=== PATIENT | female | born 1975 | race Caucasian/White ===

== ENCOUNTER → 2016-07-12 | Outpatient (CLI) | payer OTHER | LOC: M OUTALCOH 13:57 | PROVIDERS: ATTEND Psychiatry & Neurology Psychiatry | DX: F10.20 Alcohol dependence, uncomplicated (principal); F12.20 Cannabis dependence, uncomplicated ==

== ENCOUNTER 2016-08-17 14:00 | Outpatient (RCR) | payer OTHER | END 2016-08-18 | LOC: M OUTALCOH 14:00 | PROVIDERS: ATTEND Psychiatry & Neurology Psychiatry | DX: F10.20 Alcohol dependence, uncomplicated (principal); F12.20 Cannabis dependence, uncomplicated; F17.200 Nicotine dependence, unspecified, uncomplicated ==

== ENCOUNTER 2017-06-27 15:01 | Emergency (ER) | payer OTHER ==
[2017-06-27 16:07] LABS: KETONE, URINE AUTO RFX TRACE mg/dL (NEGATIVE); LEUKOCYTE ESTERASE UR AUTO RFX NEGATIVE (NEGATIVE); MUCUS, URINE RFX SMALL (NEGATIVE); NITRITE, URINE AUTO RFX NEGATIVE (NEGATIVE); RBC, URINE AUTO RFX 3 /HPF (0-3); SQUAM EPITHELIAL CELL UR AURFX 6 /HPF (0-6); WBC, URINE AUTO RFX 2 /HPF (0-3)
[2017-06-27 18:07] LABS: CONTROL LINE UCG INT CTR LINE PRESENT; URINE PREG TEST NEGATIVE (NEGATIVE)
[2017-06-27] MEDS: NS 1,000 ML IV ×2 (18:13)
[2017-06-27] MEDS: MORPHINE 4 MG/ML 1ML VIAL (J2270) IV ×2 (18:14→18:48)
[2017-06-27] MEDS: MORPHINE 4 MG/ML 1ML VIAL IV ×2 (18:14→18:48)
[2017-06-27 18:29] LABS: BASO # 0.1 10^3/uL (0.0-0.2); EOS # 0.1 10^3/uL (0.0-0.50); EOS % 1.8 % (0.0-3.0); HEMATOCRIT 39.5 % (36.0-47.0); HEMOGLOBIN 13.5 g/dl (12.0-16.0); IMMATURE GRANULOCYTE % 0.1 % (0-3.0); LYMPH # 3.6 10^3/uL (1.5-4.5); LYMPH % 48.9 % (24.0-44.0); MEAN CORPUSCULAR HEMOGLOBIN 30.8 pg (27.0-33.0); MEAN CORPUSCULAR HGB CONC 34.2 g/dl (32.0-36.5); MONO # 0.6 10^3/uL (0.0-0.8); MONO % 7.5 % (0.0-5.0); NEUTROPHILS % 40.7 % (36.0-66.0); PLATELET COUNT, AUTOMATED 268 10^3/uL (150-450); RED BLOOD COUNT 4.39 10^6/uL (4.00-5.40); RED CELL DISTRIBUTION WIDTH 12.2 % (11.5-14.5); WHITE BLOOD COUNT 7.4 10^3/uL (4.0-10.0)
[2017-06-27 18:55] LABS: ALBUMIN 3.9 GM/DL (3.2-5.2); ALBUMIN/GLOBULIN RATIO 1.05 (1.00-1.93); ALKALINE PHOSPHATASE 62 U/L (45-117); ALT/SGPT 30 U/L (12-78); ANION GAP 5 MEQ/L (8-16); AST/SGOT 15 U/L (7-37); BILIRUBIN,DIRECT < 0.1 MG/DL (0.0-0.2); BILIRUBIN,TOTAL 0.2 MG/DL (0.2-1.0); BLOOD UREA NITROGEN 13 MG/DL (7-18); CALCIUM LEVEL 8.9 MG/DL (8.5-10.1); CARBON DIOXIDE LEVEL 30 MEQ/L (21-32); CHLORIDE LEVEL 104 MEQ/L (98-107); CREATININE FOR GFR 0.82 MG/DL (0.55-1.30); GLOMERULAR FILTRATION RATE > 60.0 (>58); GLUCOSE, FASTING 83 MG/DL (70-100); POTASSIUM SERUM 4.2 MEQ/L (3.5-5.1); SODIUM LEVEL 139 MEQ/L (136-145); TOTAL PROTEIN 7.6 GM/DL (6.4-8.2)
[2017-06-27] MEDS ORDERED: NORCO 5/325MG TABLET (BULK FOR ED) PO ×2 (21:00)
== END 2017-06-27 20:57 | disposition home or self-care (01) ==
LOC: M ED 15:01
DX: S29.012A Strain of muscle and tendon of back wall of thorax, initial encounter (principal); X58.XXXA Exposure to other specified factors, initial encounter; Y92.89 Other specified places as the place of occurrence of the external cause; N20.0 Calculus of kidney; E11.9 Type 2 diabetes mellitus without complications; F41.9 Anxiety disorder, unspecified; F17.210 Nicotine dependence, cigarettes, uncomplicated; Z79.899 Other long term (current) drug therapy; Z87.442 Personal history of urinary calculi; Z98.890 Other specified postprocedural states; Z87.39 Personal history of other diseases of the musculoskeletal system and connective tissue
CPT/HCPCS: 74176; J2270

== ENCOUNTER → 2017-08-03 | Outpatient (REF) | payer OTHER ==
[2017-08-08 00:06] LABS: HPV HYBRID CAPTURE II Negative (Negative)
== END ==
LOC: M LAB REF 13:12
DX: Z12.4 Encounter for screening for malignant neoplasm of cervix (principal); R87.610 Atypical squamous cells of undetermined significance on cytologic smear of cervix (ASC-US)
CPT/HCPCS: 88142

== ENCOUNTER → 2017-08-14 | Outpatient (REF) | payer OTHER ==
[2017-08-14 14:14] LABS: RHEUMATOID FACTOR QUANT < 10.0 IU/ML (<15.0)
[2017-08-14 14:14] LABS: C REACTIVE PROTEIN QUANTITATIV < 0.30 MG/DL (0.00-0.30)
[2017-08-14 14:51] LABS: ERYTHROCYTE SEDIMENTATION RATE 11 mm/hr (0-20)
[2017-08-15 14:14] LABS: ANTINUCLEAR ANTIBODIES DIRECT Negative (Negative)
== END ==
LOC: M LAB REF 13:34
DX: M25.50 Pain in unspecified joint (principal)

== ENCOUNTER → 2017-12-19 | Outpatient (REF) | payer OTHER | LOC: M LAB REF 13:32 | DX: R87.610 Atypical squamous cells of undetermined significance on cytologic smear of cervix (ASC-US) (principal) | CPT/HCPCS: 88304 ==

== ENCOUNTER → 2018-06-12 | Outpatient (CLI) | payer MEDICAID ==
[~2018-06-12] MED LIST: CYCL10TA PO; IBUP-1114 PO; NORCOTAB PO; WELLTAB38 PO
== END ==
LOC: M OUTALCOH 08:34
PROVIDERS: ATTEND Psychiatry & Neurology Psychiatry
DX: F10.20 Alcohol dependence, uncomplicated (principal)

== ENCOUNTER 2018-06-27 14:00 | Outpatient (RCR) | payer MEDICAID | END 2018-07-18 | LOC: M OUTALCOH 14:00 | PROVIDERS: ATTEND Psychiatry & Neurology Psychiatry | DX: F10.20 Alcohol dependence, uncomplicated (principal); F14.20 Cocaine dependence, uncomplicated; F17.200 Nicotine dependence, unspecified, uncomplicated ==

== ENCOUNTER → 2018-07-29 | Outpatient (CLI) | payer MEDICAID ==
--- NOTE | 2018-07-29 14:39 | REP ---
Chest two views HISTORY: Dyspnea Comparison: 06/19/2009 The lungs are clear. The heart is normal in size. The pulmonary vasculature is normal in appearance. The bony structure is intact. IMPRESSION: No acute disease. Electronically Signed by Ancelmo Cadena MD 07/29/2018 02:31 P
== END ==
LOC: M WUC 13:53
PROVIDERS: ATTEND Nurse Practitioner Adult Health
DX: R06.02 Shortness of breath (principal)

== ENCOUNTER 2018-09-27 21:22 | Emergency (ER) | payer MEDICAID, OTHER ==
[~2018-09-27] VITALS: Ht 170.2 cm; Wt 80.9 kg
[~2018-09-27 21:22] MED LIST changes: +HYDR-3715 PO; -NORCOTAB PO
[2018-09-27] MEDS ORDERED: KETOROLAC 60 MG/2 ML VIAL (J1885) IM ONE (22:15)
[2018-09-27] MEDS ORDERED: methylPREDNISolone INJ 125 MG/2 ML VIAL (J2930) IM ONE (22:15)
[2018-09-27] MEDS ORDERED: IBUP80TA PO (23:19)
[2018-09-27 23:20] VITALS: BP 129/78
--- NOTE | 2018-09-28 08:27 | REP ---
Lumbar spine radiographs: Five views. History: Back pain. Findings: Lumbar vertebral body heights are preserved. Alignment is normal. There is mild disc space narrowing and early spur formation at the L5-S1 disc space. Pedicles and posterior elements are intact. Psoas margins are symmetric. Minimal degenerative disc changes are seen at the other lumbar levels as well. Impression: Mild degenerative disc changes. No acute bony abnormality. Electronically Signed by Kiko Ignacio MD 09/28/2018 08:18 A
== END 2018-09-27 23:26 | disposition home or self-care (01) ==
LOC: M ED 21:22
DX: S39.012A Strain of muscle, fascia and tendon of lower back, initial encounter (principal); Y92.9 Unspecified place or not applicable; Y93.9 Activity, unspecified; Y99.9 Unspecified external cause status; M51.36 Other intervertebral disc degeneration, lumbar region; M25.78 Osteophyte, vertebrae; E11.9 Type 2 diabetes mellitus without complications; F17.210 Nicotine dependence, cigarettes, uncomplicated; Z87.442 Personal history of urinary calculi; Z98.51 Tubal ligation status; Z79.891 Long term (current) use of opiate analgesic; Z79.899 Other long term (current) drug therapy
CPT/HCPCS: 72110; 81025; 96372; 99284; J1885; J2930

== ENCOUNTER 2020-02-15 21:31 | Day surgery (SDC) | payer OTHER ==
[~2020-02-15] VITALS: Ht 170.2 cm; Wt 77.0 kg
[~2020-02-15 21:31] MED LIST changes: +CYCL-707 PO; -CYCL10TA PO; +IBUP80TA PO
[2020-02-15] MEDS ORDERED: OMEP-218 PO (21:49)
[2020-02-15] MEDS ORDERED: GABA-1171 PO (21:49)
[2020-02-15] MEDS ORDERED: LORazepam 0.5 MG TAB PO STA (21:52)
[2020-02-15] MEDS ORDERED: GI COCKTAIL 50ML BTL(HYOSCYAMINE/MAALOX/LIDOCAINE VISCOUS)(1:3:1) PO ONE (22:00)
[2020-02-15] MEDS ORDERED: NITROGLYCERIN 0.4 MG SUBL TABLET SL STA (22:36)
[2020-02-15] MEDS ORDERED: GLUCAGON INJ 1MG VIAL IV STA ×2 (22:36→23:03)
[2020-02-15 22:51] VITALS: BP 138/81
[2020-02-16] MEDS ORDERED: fentaNYL 100 MCG/2 ML INJECTION (J3010) As Ordered ONE (00:48)
[2020-02-16] MEDS ORDERED: propofoL 200 MG/20 ML VIAL As Ordered ONE (00:48)
[2020-02-16] MEDS ORDERED: MIDAZOLAM INJ 2MG/2ML VIAL (J2250 PER 1MG) As Ordered ONE (00:48)
[2020-02-16] MEDS ORDERED: ROCURONIUM BROMIDE 50 MG/5 ML VIAL As Ordered ONE (00:48)
[2020-02-16] MEDS ORDERED: LIDOCAINE 2% 100MG/5ML SDV (FOR ANES.) As Ordered ONE (00:48)
[2020-02-16] MEDS ORDERED: SUGAMMADEX SODIUM 500 MG/5 ML VIAL (BRIDION) As Ordered ONE (01:18)
[2020-02-16] MEDS ORDERED: SUCCINYLCHOLINE 100 MG/5 ML SYRINGE (J0330) As Ordered ONE (01:18)
[2020-02-16] MEDS ORDERED: ONDANSETRON 4MG/2ML VIAL As Ordered ONE ×2 (01:19→01:50)
[2020-02-16] MEDS ORDERED: dexameTHASONE 4 MG/ML 1ML VIAL (J1100 PER 1MG) As Ordered ONE (01:19)
--- NOTE | 2020-02-16 01:43 | ROOR ---
Patient Name: Senait Escobar Procedure Date: 02/17/2020 1:04 AM Date of : 1975 Age: 44 Gender: Female Note Status: Finalized Procedure: Upper GI endoscopy Indications: Dysphagia, Follow-up of gastro-esophageal reflux disease, Foreign body in the esophagus Providers: Trevor CHONG MD Referring MD: Family Practice/Adult section [facility], 3. Emergency Dept 3. Emergency Dept Requesting Provider: Medicines: Monitored Anesthesia Care Complications: No immediate complications. Procedure: Pre-Anesthesia Assessment: - The heart rate, respiratory rate, oxygen saturations, blood pressure, adequacy of pulmonary ventilation, and response to care were monitored throughout the procedure. The Endoscope was introduced through the mouth, and advanced to the second part of duodenum. The upper GI endoscopy was accomplished without difficulty. The patient tolerated the procedure well. Findings: Food was found in the lower third of the esophagus. Removal of food was accomplished. LA Grade B (one or more mucosal breaks greater than 5 mm, not extending between the tops of two mucosal folds) esophagitis was found at the gastroesophageal junction. Biopsies were taken with a cold forceps for histology. The exam of the esophagus was otherwise normal. Biopsies with a cold forceps in the mid esophagus was performed for evaluation of eosinophilic esophagitis. The entire examined stomach was normal. The examined duodenum was normal. Impression: - Food in the lower third of the esophagus. Removal was successful. - Moderate reflux esophagitis. Biopsied. - Normal stomach. - Normal examined duodenum. (- Edema and inflammation is seen in the distal esophagus. No significant stricture is seen.) Recommendation: - Use Prilosec (omeprazole) 40 mg PO daily. - Follow an antireflux regimen. - Observe patient's clinical course. - Return to my office PRN. - Telephone endoscopist for pathology results in 2 weeks. - Written discharge instructions were provided to the patient. - Patient has a contact number available for emergencies. The signs and symptoms of potential delayed complications were discussed with the patient. Return to normal activities tomorrow. Written discharge instructions were provided to the patient. - Discharge patient to home. Trevor Chong MD Trevor CHONG MD 02/16/2020 1:42:23 AM Electronically signed by Trevor CHONG MD Number of Addenda: 0 Note Initiated On: 02/16/2020 1:04 AM Estimated Blood Loss: Estimated blood loss: none.
[2020-02-16] MEDS ORDERED: LR 1,000 ML IV SCH (02:00)
[2020-02-16] MEDS ORDERED: ONDANSETRON 4MG/2ML VIAL IV PRN (02:00)
[2020-02-16] MEDS ORDERED: fentaNYL 100 MCG/2 ML INJECTION (J3010) IV PRN (02:00)
[2020-02-16 02:43] VITALS: BP 166/90
== END 2020-02-16 03:10 | disposition home or self-care (01) ==
LOC: M ED 21:31 → M SDC 21:32
PROVIDERS: ATTEND Internal Medicine Gastroenterology
DX: T18.128A Food in esophagus causing other injury, initial encounter (principal); K20.9 Esophagitis, unspecified; Y92.89 Other specified places as the place of occurrence of the external cause
CPT/HCPCS: 43239; 43247; 88305; 96374; 96376; 99284; J0330; J1100; J1610; J2250; J2405; J3010; U0002

== ENCOUNTER → 2020-11-07 | Outpatient (REF) | payer OTHER ==
[~2020-11-07] MED LIST changes: +GABA-1171 PO; +OMEP-218 PO
[2020-11-08 13:32] LABS: CHLAMYDIA DNA AMPLIFICATION NEGATIVE (NEGATIVE); GC DNA AMPLIFICATION NEGATIVE (NEGATIVE)
== END ==
LOC: M LAB REF 09:32
PROVIDERS: ATTEND Nurse Practitioner Family
DX: R30.0 Dysuria (principal); Z20.2 Contact with and (suspected) exposure to infections with a predominantly sexual mode of transmission

== ENCOUNTER → 2021-02-27 | Outpatient (REF) | payer OTHER ==
[2021-02-27 20:00] LABS: APPEARANCE, URINE HAZY (CLEAR); BACTERIA, URINE AUTO NEGATIVE (NEGATIVE); BILIRUBIN, URINE AUTO NEGATIVE (NEGATIVE); BLOOD, URINE BLOOD 1+ (NEGATIVE); COLOR, URINE YELLOW (YELLOW); GLUCOSE, URINE (UA) AUTO NEGATIVE (NEGATIVE); KETONE, URINE AUTO NEGATIVE (NEGATIVE); LEUKOCYTE ESTERASE, URINE AUTO NEGATIVE (NEGATIVE); MUCUS, URINE SMALL (NEGATIVE); NITRITE, URINE AUTO NEGATIVE (NEGATIVE); PROTEIN, URINE AUTO NEGATIVE (NEGATIVE); RBC, URINE AUTO 3 /HPF (0-3); SPECIFIC GRAVITY URINE AUTO 1.017 (1.002-1.035); SQUAMOUS EPITHELIAL CELL UR AU 2 /HPF (0-6); UROBILINOGEN, URINE AUTO 0.2 mg/dL (0.0-2.0); WBC, URINE AUTO 1 /HPF (0-3)
[2021-02-27 22:08] LABS: GC DNA AMPLIFICATION NEGATIVE (NEGATIVE)
== END ==
LOC: M LAB REF 19:36
PROVIDERS: ATTEND Physician Assistant
DX: N39.0 Urinary tract infection, site not specified (principal)

== ENCOUNTER 2021-03-01 10:09 | Emergency (ER) | payer OTHER ==
[~2021-03-01] VITALS: Ht 170.2 cm; Wt 81.4 kg
--- NOTE | 2021-03-01 10:40 | REP ---
INDICATION: CHEST PAIN COMPARISON: 07/29/2018 TECHNIQUE: Portable AP view of the chest FINDINGS: The mediastinum and cardiac silhouette are stable and within normal limits for portable technique. The lung river are clear without acute consolidation, effusion, or pneumothorax. Skeletal structures are intact. IMPRESSION: No acute cardiopulmonary process appreciated. <Electronically signed by Abel Kinney > 03/01/21 [id number]
[2021-03-01 11:48] LABS: BASO # 0.1 10^3/uL (0.0-0.2); EOS # 0.2 10^3/uL (0.0-0.5); HEMATOCRIT 36.5 % (36.0-47.0); HEMOGLOBIN 12.3 g/dl (12.0-15.5); LYMPH # 2.4 10^3/uL (1.5-5.0); LYMPH % 30.2 % (24.0-44.0); MEAN CORPUSCULAR HEMOGLOBIN 30.8 pg (27.0-33.0); MEAN CORPUSCULAR HGB CONC 33.7 g/dl (32.0-36.5); MEAN CORPUSCULAR VOLUME 91.5 fl (80.0-96.0); MONO # 0.6 10^3/uL (0.0-0.8); NEUTROPHILS # 4.6 10^3/uL (1.5-8.5); NEUTROPHILS % 59.5 % (36.0-66.0); PLATELET COUNT, AUTOMATED 231 10^3/uL (150-450); RED BLOOD COUNT 3.99 10^6/uL (4.00-5.40); WHITE BLOOD COUNT 7.8 10^3/uL (4.0-10.0)
[2021-03-01] MEDS ORDERED: GI COCKTAIL 50ML BTL(HYOSCYAMINE/MAALOX/LIDOCAINE VISCOUS)(1:3:1) PO ONE (11:50)
[2021-03-01] MEDS ORDERED: ONDANSETRON 4MG/2ML VIAL IV ONE (11:50)
[2021-03-01 11:59] LABS: INR 0.98; PROTHROMBIN TIME 13.4 SECONDS (12.7-14.5)
[2021-03-01 12:27] LABS: ALT/SGPT 27 U/L (12-78); BILIRUBIN,DIRECT < 0.1 MG/DL (0.0-0.2); BILIRUBIN,TOTAL 0.3 MG/DL (0.2-1.0); BLOOD UREA NITROGEN 22 MG/DL (7-18); CALCIUM LEVEL 8.5 MG/DL (8.5-10.1); CARBON DIOXIDE LEVEL 26 MEQ/L (21-32); CHLORIDE LEVEL 109 MEQ/L (98-107); CK-MB VALUE MASS 1.1 NG/ML (<3.6); CPK CREATINE PHOSPHOKINASE 74 U/L (26-192); CREATININE FOR GFR 0.78 MG/DL (0.55-1.30); FREE T4 1.17 NG/DL (0.76-1.46); GLOMERULAR FILTRATION RATE > 60.0 (>58); GLUCOSE, FASTING 116 MG/DL (70-100); LIPASE 127 U/L (73-393); MB/CK RELATIVE INDEX 1.49 (< OR =4); NT-PRO BNP 53 PG/ML (<125); POTASSIUM SERUM 4.2 MEQ/L (3.5-5.1); SODIUM LEVEL 139 MEQ/L (136-145); THYROID STIMULATING HORMONE 0.291 uIU/ML (0.358-3.740); TOTAL PROTEIN 6.6 GM/DL (6.4-8.2); TROPONIN I < 0.02 NG/ML (< 0.10)
[2021-03-01] MEDS ORDERED: NITROGLYCERIN 0.4 MG SUBL TABLET SL STA (12:32)
[2021-03-01] MEDS ORDERED: ASPIRIN 81 MG CHEW TABLET PO ONE (12:35)
[2021-03-01] MEDS ORDERED: ISOVUE-370 76% 100ML VIAL As Ordered ONE (12:42)
[2021-03-01] MEDS ORDERED: LORazepam 2 MG/ML VIAL IV STA (13:02)
[2021-03-01] MEDS ORDERED: PANTOPRAZOLE 40MG VIAL (C9113 PER 1) IV ONE (13:05)
--- NOTE | 2021-03-01 13:11 | REP ---
INDICATION: chest pain sob. COMPARISON: Radiograph today. TECHNIQUE: CT angiogram chest performed following the intravenous administration of 100 cc of Isovue 370. Sagittal and coronal reconstruction images are performed. FINDINGS: Lungs: Clear, no infiltrate or nodule. Mediastinum: No adenopathy. Pulmonary arteries: No evidence of pulmonary embolism. Marti: No adenopathy. Axilla: No adenopathy. Pleura: No effusion. Heart: Not enlarged. Thoracic aorta: No aneurysm or dissection. Upper abdominal structures: Unremarkable. Visualized osseous structures: Unremarkable. IMPRESSION: No CT evidence of pulmonary embolism. No infiltrate seen. <Electronically signed by Han Hillman > 03/01/21 [id number]
[2021-03-01 17:55] LABS: CK-MB VALUE MASS 1.1 NG/ML (<3.6); CPK CREATINE PHOSPHOKINASE 73 U/L (26-192); MB/CK RELATIVE INDEX 1.51 (< OR =4); TROPONIN I < 0.02 NG/ML (< 0.10)
[2021-03-01 18:30] VITALS: BP 133/66
--- NOTE | 2021-03-01 21:47 | ECGEPIP ---
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
--- NOTE | 2021-03-01 22:06 | ECGEPIP ---
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
== END 2021-03-01 18:48 | disposition home or self-care (01) ==
LOC: M ED 10:09
DX: R07.9 Chest pain, unspecified (principal); R06.02 Shortness of breath; J43.9 Emphysema, unspecified; F33.9 Major depressive disorder, recurrent, unspecified; F43.10 Post-traumatic stress disorder, unspecified; M51.9 Unspecified thoracic, thoracolumbar and lumbosacral intervertebral disc disorder; Z79.899 Other long term (current) drug therapy; F17.210 Nicotine dependence, cigarettes, uncomplicated
CPT/HCPCS: 71045; 71275; 80048; 80076; 82550; 82553; 83690; 83880; 84439; 84443; 85025; 85610; 85730; 87040; 93005; 93041; 94760; 96374; 96375; 99285; C9113; J2060; J2405; Q9967

== ENCOUNTER → 2022-03-14 | Outpatient (CLI) | payer MEDICAID ==
[~2022-03-14] MED LIST changes: +OMEP-173 PO; -OMEP-218 PO
== END ==
LOC: M OUTALCOH 07:56
PROVIDERS: ATTEND Psychiatry & Neurology Psychiatry
DX: Z02.9 Encounter for administrative examinations, unspecified (principal)

== ENCOUNTER 2022-03-17 11:18 | Outpatient (RCR) | payer MEDICAID | END 2022-03-20 | LOC: M OUTALCOH 11:18 | PROVIDERS: ATTEND Psychiatry & Neurology Psychiatry | DX: F10.20 Alcohol dependence, uncomplicated (principal); F12.20 Cannabis dependence, uncomplicated; F15.20 Other stimulant dependence, uncomplicated; F17.200 Nicotine dependence, unspecified, uncomplicated ==

== ENCOUNTER → 2023-01-29 | Outpatient (REF) | payer MEDICAID ==
[2023-01-29 19:20] LABS: CREATININE, URINE 148.1 MG/DL; MAU/CREAT RATIO 10.1 MCG/MG (0.0-30.0)
[2023-01-31 11:08] LABS: CREATININE, URINE 141.9 mg/dL (20.0-300.0)
== END ==
LOC: M LAB REF 17:24
PROVIDERS: ATTEND Nurse Practitioner Family
DX: Z79.899 Other long term (current) drug therapy (principal); E11.9 Type 2 diabetes mellitus without complications

== ENCOUNTER → 2023-06-26 | Outpatient (CLI) | payer OTHER | LOC: M WUC 09:20 | PROVIDERS: ATTEND Physician Assistant | DX: M54.2 Cervicalgia (principal) ==

== ENCOUNTER → 2023-06-26 | Outpatient (CLI) | payer OTHER ==
[2023-06-26 10:53] LABS: BASO # 0.1 10^3/uL (0.0-0.2); BASO % 0.8 % (0.0-1.0); EOS # 0.1 10^3/uL (0.0-0.5); EOS % 1.7 % (0.0-3.0); HEMATOCRIT 41.1 % (36.0-47.0); HEMOGLOBIN 13.7 g/dl (12.0-15.5); LYMPH # 2.2 10^3/uL (1.5-5.0); MEAN CORPUSCULAR HEMOGLOBIN 29.8 pg (27.0-33.0); MEAN CORPUSCULAR HGB CONC 33.3 g/dl (32.0-36.5); MEAN CORPUSCULAR VOLUME 89.5 fl (80.0-96.0); MONO # 0.5 10^3/uL (0.0-0.8); MONO % 6.9 % (2.0-8.0); NEUTROPHILS # 4.2 10^3/uL (1.5-8.5); NEUTROPHILS % 59.5 % (36.0-66.0); PLATELET COUNT, AUTOMATED 224 10^3/uL (150-450); RED BLOOD COUNT 4.59 10^6/uL (4.00-5.40); WHITE BLOOD COUNT 7.1 10^3/uL (4.0-10.0)
[2023-06-26 11:03] LABS: ERYTHROCYTE SEDIMENTATION RATE 41 mm/hr (0-20)
[2023-06-26 11:29] LABS: FOLATE > 24.0 NG/ML (>5.4); THYROID STIMULATING HORMONE 0.974 uIU/ML (0.55-4.78)
[2023-06-26 11:30] LABS: VITAMIN B12 LEVEL 530 PG/ML (211-911)
[2023-06-26 11:39] LABS: C REACTIVE PROTEIN QUANTITATIV < 0.40 MG/DL (<1.0)
[2023-06-26 11:41] LABS: ALBUMIN 3.7 G/DL (3.2-5.2); ALKALINE PHOSPHATASE 54 U/L (46-116); ALT/SGPT 22 U/L (7.0-40); AST/SGOT 18 U/L (<34); BILIRUBIN,TOTAL 0.4 MG/DL (0.3-1.2); BLOOD UREA NITROGEN 11 MG/DL (9-23); CARBON DIOXIDE LEVEL 27 MMOL/L (20-31); CHLORIDE LEVEL 105 MMOL/L (98-107); CHOLESTEROL LEVEL 220 MG/DL (<200); CHOLESTEROL RISK RATIO 4.61 (<5); CREATININE FOR GFR 0.73 MG/DL (0.55-1.30); GLOMERULAR FILTRATION RATE > 60.0 (>58); GLUCOSE, FASTING 85 MG/DL (60-100); HDL CHOLESTEROL 47.7 MG/DL (>40); HIV 1&2 SCREEN NEGATIVE (NEGATIVE); LDL CHOLESTEROL 137.3 MG/DL (<100); NON-HDL-C 172.3 MG/DL; POTASSIUM SERUM 4.4 MMOL/L (3.5-5.1); SODIUM LEVEL 138 MMOL/L (136-145); TOTAL PROTEIN 7.2 G/DL (5.7-8.2); TRIGLYCERIDES LEVEL 175 MG/DL (<150)
[2023-06-26 11:49] LABS: HEPATITIS C VIRUS ABY INDEX 0.02 INDEX (<0.8)
== END ==
LOC: M LAB 09:46
PROVIDERS: ATTEND Physician Assistant
DX: Z11.4 Encounter for screening for human immunodeficiency virus [HIV] (principal)

== ENCOUNTER 2023-11-10 09:58 | Emergency (ER) | payer OTHER ==
[~2023-11-10] VITALS: Ht 170.2 cm; Wt 88.1 kg
[2023-11-10 09:59] VITALS: BP 135/86; O2SAT 99
[2023-11-10] MEDS ORDERED: ATOR1TAB19 (10:10)
[2023-11-10] MEDS ORDERED: HYDR50TA70 (10:10)
[2023-11-10] MEDS ORDERED: HYDR12CA (10:50)
[2023-11-10 11:03] LABS: BASO # 0.1 10^3/uL (0.0-0.2); BASO % 1.3 % (0.0-1.0); EOS # 0.2 10^3/uL (0.0-0.5); EOS % 2.4 % (0.0-3.0); HEMATOCRIT 42.2 % (36.0-47.0); HEMOGLOBIN 14.1 g/dl (12.0-15.5); LYMPH % 39.1 % (24.0-44.0); MEAN CORPUSCULAR HEMOGLOBIN 30.4 pg (27.0-33.0); MEAN CORPUSCULAR HGB CONC 33.4 g/dl (32.0-36.5); MEAN CORPUSCULAR VOLUME 90.9 fl (80.0-96.0); MONO # 0.6 10^3/uL (0.0-0.8); MONO % 7.6 % (2.0-8.0); NEUTROPHILS # 3.8 10^3/uL (1.5-8.5); NEUTROPHILS % 49.5 % (36.0-66.0); PLATELET COUNT, AUTOMATED 270 10^3/uL (150-450); RED BLOOD COUNT 4.64 10^6/uL (4.00-5.40); WHITE BLOOD COUNT 7.6 10^3/uL (4.0-10.0)
[2023-11-10 11:12] LABS: BLOOD UREA NITROGEN 12 MG/DL (9-23); CALCIUM LEVEL 9.5 MG/DL (8.5-10.1); CARBON DIOXIDE LEVEL 29 MMOL/L (20-31); CHLORIDE LEVEL 105 MMOL/L (98-107); CK-MB VALUE MASS < 1.0 NG/ML (<3.6); CREATININE FOR GFR 0.62 MG/DL (0.55-1.30); GLOMERULAR FILTRATION RATE > 60.0 (>58); GLUCOSE, FASTING 86 MG/DL (60-100); POTASSIUM SERUM 4.3 MMOL/L (3.5-5.1); SODIUM LEVEL 137 MMOL/L (136-145)
[2023-11-10 11:13] LABS: CPK CREATINE PHOSPHOKINASE 109 U/L (34-145); MB/CK RELATIVE INDEX 0.91 (< OR =4)
[2023-11-10] MEDS ORDERED: ISOVUE-370 76% 100ML VIAL As Ordered ONE (11:20)
[2023-11-10 12:28] LABS: CK-MB VALUE MASS < 1.0 NG/ML (<3.6)
[2023-11-10 12:30] LABS: CPK CREATINE PHOSPHOKINASE 86 U/L (34-145); MB/CK RELATIVE INDEX 1.16 (< OR =4)
[2023-11-10 13:50] VITALS: TEMP 97.4
== END 2023-11-10 13:51 | disposition home or self-care (01) ==
LOC: M ED 09:58
DX: R07.89 Other chest pain (principal); G56.92 Unspecified mononeuropathy of left upper limb; J44.9 Chronic obstructive pulmonary disease, unspecified; F41.9 Anxiety disorder, unspecified; F32.A Depression, unspecified; F17.210 Nicotine dependence, cigarettes, uncomplicated; Z79.899 Other long term (current) drug therapy
CPT/HCPCS: 36415; 71045; 71275; 80048; 82550; 82553; 84484; 85025; 93005; 93041; 94760; 99284; Q9967

== ENCOUNTER → 2024-01-09 | Outpatient (REF) | payer OTHER ==
[~2024-01-09] MED LIST changes: +ATOR1TAB19; +HYDR12CA; +HYDR50TA70
[2024-01-09 17:47] LABS: ALBUMIN 3.9 G/DL (3.2-5.2); BILIRUBIN,DIRECT 0.1 MG/DL (<0.4); BILIRUBIN,TOTAL 0.4 MG/DL (0.3-1.2); CHOLESTEROL RISK RATIO 5.73 (<5); LDL CHOLESTEROL 136.8 MG/DL (<100); TOTAL PROTEIN 7.6 G/DL (5.7-8.2)
== END ==
LOC: M LAB REF 16:18
PROVIDERS: ATTEND Physician Assistant
DX: E78.5 Hyperlipidemia, unspecified (principal)

== ENCOUNTER → 2024-05-07 | Outpatient (REF) | payer OTHER | LOC: M LAB REF 16:20 | PROVIDERS: ATTEND Physician Assistant | DX: B34.9 Viral infection, unspecified (principal) ==

== ENCOUNTER 2024-05-09 08:11 | Emergency (ER) | payer OTHER ==
[~2024-05-09] VITALS: Ht 170.2 cm; Wt 88.6 kg
[2024-05-09] MEDS ORDERED: ALBU8.5H (08:31)
[2024-05-09] MEDS ORDERED: ISOVUE-370 76% 100ML VIAL As Ordered ONE (08:55)
[2024-05-09 09:06] LABS: HEMATOCRIT 38.2 % (36.0-47.0); MEAN CORPUSCULAR HEMOGLOBIN 29.9 pg (27.0-33.0); MEAN CORPUSCULAR VOLUME 87.8 fl (80.0-96.0); PLATELET COUNT, AUTOMATED 183 10^3/uL (150-450); RED BLOOD COUNT 4.35 10^6/uL (4.00-5.40); WHITE BLOOD COUNT 5.2 10^3/uL (4.0-10.0)
[2024-05-09 09:16] LABS: CK-MB VALUE MASS < 1.0 NG/ML (<3.6); LIPASE 31 U/L (12-53)
[2024-05-09 09:18] LABS: CPK CREATINE PHOSPHOKINASE 77 U/L (34-145); MB/CK RELATIVE INDEX 1.29 (< OR =4)
[2024-05-09 09:19] LABS: ALBUMIN 3.2 G/DL (3.2-5.2); ALKALINE PHOSPHATASE 97 U/L (35-104); ALT/SGPT 73 U/L (7.0-40); AST/SGOT 38 U/L (<34); BILIRUBIN,DIRECT < 0.1 MG/DL (<0.4); BILIRUBIN,TOTAL 0.2 MG/DL (0.3-1.2); BLOOD UREA NITROGEN 11 MG/DL (9-23); CALCIUM LEVEL 8.9 MG/DL (8.5-10.1); CARBON DIOXIDE LEVEL 28 MMOL/L (20-31); CHLORIDE LEVEL 107 MMOL/L (98-107); CREATININE FOR GFR 0.59 MG/DL (0.55-1.30); GLOMERULAR FILTRATION RATE > 60.0 (>51); GLUCOSE, FASTING 102 MG/DL (60-100); POTASSIUM SERUM 3.9 MMOL/L (3.5-5.1); SODIUM LEVEL 141 MMOL/L (136-145); TOTAL PROTEIN 6.9 G/DL (5.7-8.2)
[2024-05-09 09:20] LABS: THYROID STIMULATING HORMONE 1.755 uIU/ML (0.55-4.78)
[2024-05-09 09:21] LABS: FREE T4 1.05 NG/DL (0.89-1.76)
[2024-05-09 09:36] LABS: ANISOCYTOSIS 1+; ATYPICAL LYMPH 9 % (0-5); BASOPHILS 1 % (0-1); LYMPHOCYTES 39 % (16-44); MONOCYTES 9 % (0-5); NEUTROPHILS 42 % (28-66); PLATELET ESTIMATE NORMAL (NORMAL); POIKILOCYTOSIS 1+
[2024-05-09 10:16] LABS: CK-MB VALUE MASS < 1.0 NG/ML (<3.6)
[2024-05-09 10:18] LABS: CPK CREATINE PHOSPHOKINASE 74 U/L (34-145); MB/CK RELATIVE INDEX 1.35 (< OR =4)
[2024-05-09] MEDS ORDERED: DOXY-441 PO (11:15)
[2024-05-09] MEDS ORDERED: PRED20TA PO (11:15)
[2024-05-09 11:16] VITALS: BP 131/84
[2024-05-09] MEDS: DOXYCYCLINE HYCLATE 100MG TABLET PO ONE (11:30)
[2024-05-09] MEDS: ACETAMINOPHEN 325 MG TAB PO ONE (11:30)
[2024-05-09] MEDS: methylPREDNISolone 125MG 2ML VIAL IV ONE (11:30)
[2024-05-09 11:31] VITALS: TEMP 97.8; O2SAT 98
== END 2024-05-09 11:42 | disposition home or self-care (01) ==
LOC: M ED 08:11 → EDBD 08:11 → M ED 11:42
DX: R91.1 Solitary pulmonary nodule (principal); J20.9 Acute bronchitis, unspecified; R07.9 Chest pain, unspecified; E04.1 Nontoxic single thyroid nodule; E11.9 Type 2 diabetes mellitus without complications; F17.210 Nicotine dependence, cigarettes, uncomplicated; F10.10 Alcohol abuse, uncomplicated; Z79.51 Long term (current) use of inhaled steroids; Z79.52 Long term (current) use of systemic steroids; Z79.899 Other long term (current) drug therapy
CPT/HCPCS: 70450; 71045; 71275; 80047; 80048; 80076; 82550; 82553; 83690; 83880; 84439; 84443; 84484; 85025; 87040; 87486; 87581; 87633; 87798; 93005; 93041; 94760; 96374; 99285; J2919; Q9967

== ENCOUNTER → 2024-05-26 | Outpatient (REF) | payer OTHER ==
[~2024-05-26] MED LIST changes: +ALBU8.5H; +DOXY-441 PO; +PRED20TA PO
[2024-05-26 19:00] LABS: CHOLESTEROL RISK RATIO 4.24 (<5); HDL CHOLESTEROL 45.2 MG/DL (>40); LDL CHOLESTEROL 126.4 MG/DL (<100); NON-HDL-C 146.8 MG/DL
[2024-05-26 19:08] LABS: FOLATE 21.47 NG/ML (>5.4)
== END ==
LOC: M LAB REF 16:18
PROVIDERS: ATTEND Physician Assistant
DX: G44.52 New daily persistent headache (NDPH) (principal); E78.5 Hyperlipidemia, unspecified

== ENCOUNTER → 2024-06-18 | Outpatient (CLI) | payer OTHER | LOC: M RAD 11:59 | PROVIDERS: ATTEND Physician Assistant | DX: E04.1 Nontoxic single thyroid nodule (principal) ==

== ENCOUNTER → 2024-07-31 | Outpatient (REF) | payer OTHER ==
[~2024-07-31] MED LIST changes: +IBUP-1022 PO; +OXYC1TAB23 PO
== END ==
LOC: M LAB REF 18:03
PROVIDERS: ATTEND Physician Assistant
DX: D23.62 Other benign neoplasm of skin of left upper limb, including shoulder (principal); R20.9 Unspecified disturbances of skin sensation

== ENCOUNTER 2024-08-03 22:16 | Emergency (ER) | payer OTHER ==
[~2024-08-03] VITALS: Ht 170.2 cm; Wt 89.5 kg
[~2024-08-03 22:16] MED LIST changes: -IBUP-1022 PO; -OXYC1TAB23 PO
[2024-08-03] MEDS: METHOCARBAMOL 1,000 MG/10 ML VIAL IV ONE (23:31)
[2024-08-03] MEDS: KETOROLAC 30 MG/ML 1ML VIAL IV ONE (23:31)
[2024-08-04] MEDS: ONDANSETRON 4MG 2ML VIAL IV ONE (01:26)
[2024-08-04] MEDS: MORPHINE 4 MG/ML 1ML VIAL IV PRN (01:26)
[2024-08-04 02:29] VITALS: O2SAT 98
[2024-08-04] MEDS: ACETAMINOPHEN 325 MG TAB PO ONE (07:48)
[2024-08-04] MEDS: NS (Normal Saline) 0.9% 1,000 ML IV ONE (07:48)
[2024-08-04] MEDS: KETOROLAC 30 MG/ML 1ML VIAL IV ONE (07:48)
[2024-08-04] MEDS: MORPHINE 4 MG/ML 1ML VIAL IV ONE (07:50)
[2024-08-04 08:43] LABS: BLOOD UREA NITROGEN 13 MG/DL (9-23); CALCIUM LEVEL 8.3 MG/DL (8.5-10.1); CARBON DIOXIDE LEVEL 27 MMOL/L (20-31); CHLORIDE LEVEL 108 MMOL/L (98-107); CREATININE FOR GFR 0.66 MG/DL (0.55-1.30); GLOMERULAR FILTRATION RATE > 60.0 (>51); GLUCOSE, FASTING 87 MG/DL (60-100); POTASSIUM SERUM 3.9 MMOL/L (3.5-5.1); SODIUM LEVEL 141 MMOL/L (136-145)
[2024-08-04] MEDS ORDERED: IBUP-1022 PO (11:02)
[2024-08-04] MEDS ORDERED: OXYC1TAB23 PO (11:02)
[2024-08-04 11:20] VITALS: BP 119/64; TEMP 97.6; O2SAT 97
[2024-08-04] MEDS: CYCLOBENZAPRINE 10MG TABLET PO ONE (11:20)
[2024-08-04] MEDS: PERCOCET 5MG/325MG TAB PO ONE (11:21)
== END 2024-08-04 11:20 | disposition home or self-care (01) ==
LOC: EDBD 22:16 → M ED 22:16
DX: S39.012A Strain of muscle, fascia and tendon of lower back, initial encounter (principal); M51.360 Other intervertebral disc degeneration, lumbar region with discogenic back pain only; Y92.9 Unspecified place or not applicable; Y93.9 Activity, unspecified; Y99.9 Unspecified external cause status; E11.9 Type 2 diabetes mellitus without complications; E78.5 Hyperlipidemia, unspecified; F17.210 Nicotine dependence, cigarettes, uncomplicated; Z79.1 Long term (current) use of non-steroidal anti-inflammatories (NSAID); Z79.2 Long term (current) use of antibiotics; Z79.51 Long term (current) use of inhaled steroids; Z79.52 Long term (current) use of systemic steroids; Z79.899 Other long term (current) drug therapy
CPT/HCPCS: 72131; 72148; 80048; 96374; 96375; 96376; 99285; J1885; J2405; J2800

== ENCOUNTER → 2024-09-26 | Outpatient (CLI) | payer OTHER ==
[~2024-09-26] MED LIST changes: +IBUP-1022 PO; +OXYC1TAB23 PO
== END ==
LOC: M PLAIMG 14:04
PROVIDERS: ATTEND Internal Medicine Pulmonary Disease
DX: R91.1 Solitary pulmonary nodule (principal)

== ENCOUNTER → 2025-01-20 | Outpatient (CLI) | payer OTHER ==
[~2025-01-20] MED LIST changes: +HYDR12.510; -HYDR12CA; -IBUP-1022 PO; +IBUP600T42 PO
[2025-01-20 12:20] LABS: ALT/SGPT 19 U/L (7.0-40); AST/SGOT 18 U/L (<34); CALCIUM LEVEL 9.1 MG/DL (8.5-10.1); CARBON DIOXIDE LEVEL 29 MMOL/L (20-31); CHLORIDE LEVEL 106 MMOL/L (98-107); CHOLESTEROL LEVEL 242 MG/DL (<200); CHOLESTEROL RISK RATIO 6.52 (<5); CREATININE FOR GFR 0.68 MG/DL (0.55-1.30); GLOMERULAR FILTRATION RATE > 90.0 (>51); LDL CHOLESTEROL 141.5 MG/DL (<100); NON-HDL-C 204.9 MG/DL; POTASSIUM SERUM 4.3 MMOL/L (3.5-5.1); SODIUM LEVEL 141 MMOL/L (136-145); TRIGLYCERIDES LEVEL 317 MG/DL (<150)
[2025-01-20 12:26] LABS: ESTIMATED AVERAGE GLUCOSE 120.0 MG/DL (60-110)
== END ==
LOC: M LAB 11:19
PROVIDERS: ATTEND Physician Assistant
DX: E78.5 Hyperlipidemia, unspecified (principal); E11.9 Type 2 diabetes mellitus without complications

== ENCOUNTER → 2025-04-02 | Outpatient (CLI) | payer OTHER | LOC: M RAD 14:29 | PROVIDERS: ATTEND Student in an Organized Health Care Education/Training Program | DX: E04.1 Nontoxic single thyroid nodule (principal) ==

== ENCOUNTER → 2025-05-12 | Outpatient (CLI) | payer OTHER | LOC: M CARPUL 13:31 | PROVIDERS: ATTEND Student in an Organized Health Care Education/Training Program | DX: R06.01 Orthopnea (principal) ==